=== PATIENT | female | born 1965 | race Caucasian/White ===

== ENCOUNTER 2019-09-21 11:35 | Emergency (ER) | payer SELFPAY ==
[~2019-09-21] VITALS: Ht 167.6 cm; Wt 69.9 kg
[2019-09-21 11:50] VITALS: BP 105/86
== END 2019-09-21 12:24 | disposition home or self-care (01) ==
LOC: ER 11:35
DX: K02.9 Dental caries, unspecified (principal); F17.210 Nicotine dependence, cigarettes, uncomplicated; F15.10 Other stimulant abuse, uncomplicated; Z98.51 Tubal ligation status